=== PATIENT | male | born 1990 | race Hispanic/Latino ===

== ENCOUNTER 2017-02-28 13:46 | Emergency (ER) | payer SELFPAY ==
--- NOTE | 2017-02-28 15:01 | RAD ---
FRONTAL VIEW CHEST: Indication: Chest pain. FINDINGS: There is hypo-inflation of the lungs. No consolidation, effusion, or discrete pneumothorax. Cardiac s ilhouette is accentuated. IMPRESSION: No focal consolidation. Hypoinflated lungs. POS: [facility]
[2017-02-28] MEDS ORDERED: Ketorolac Tromethamine 30 MG/ML VIAL ONE (16:05)
[2017-02-28] MEDS ORDERED: Lorazepam 1 MG TAB ONE (16:39)
[2017-02-28 17:01] LABS: #Basophils 0.1 thou/uL (0.0-0.2); #Eosinphils 0.1 thou/uL (0.0-0.7); #Lymphocytes 2.7 thou/uL (1.20-3.40); #Monocytes 0.4 thou/uL (0.11-0.59); #Neutrophils 5.2 thou/uL (1.40-6.50); %Basophils 0.8 % (0.0-1.0); %Eosinophils 0.8 % (0.0-10.0); %Monocytes 4.3 % (0.0-10.0); %Neutrophils 62.1 % (42.0-75.0); Hemoglobin 16.4 g/dL (14.0-18.0); Mean Corpuscular HGB CONC 35.4 g/dL (32.0-36.0); Mean Corpuscular Hemoglobin 30.7 pg (27.0-31.0); Mean Corpuscular Volume 86.9 fl (80.0-94.0); Mean Platelet Volume 7.6 fL (7.4-10.4); Platelet Count 177 thou/uL (130-400); RBC Distribution Width 11.6 % (11.5-14.5); Red Blood Cell (RBC) Count 5.32 mill/uL (4.70-6.10); White Blood Cell (WBC) Count 8.4 thou/uL (4.8-10.8)
[2017-02-28 17:24] LABS: Anion Gap 13 mmol/L (10-20); BUN (Urea Nitrogen) 12 mg/dL (8.9-20.6); CK (CPK) 102 U/L (30-200); Calc. Creatinine Clearance 0 mL/min (70-130); Calcium 9.9 mg/dL (7.8-10.44); Carbon Dioxide 26 mmol/L (22-29); Chloride 104 mmol/L (98-107); Estimated GFR-MDRD Greater than 90; Glucose 86 mg/dL (70-105); Potassium 4.1 mmol/L (3.5-5.1); Sodium 139 mmol/L (136-145)
[2017-02-28 17:28] LABS: CKMB 0.7 ng/mL (0-6.6); Troponin I Less than 0.010 ng/mL (< 0.028)
== END 2017-02-28 18:05 | disposition home or self-care (01) ==
LOC: ERS 13:46
DX: R07.89 Other chest pain (principal); J45.909 Unspecified asthma, uncomplicated
CPT/HCPCS: 71045; 80048; 82550; 82553; 84484; 85025; 85379; 93005; 96372; J1885

== ENCOUNTER 2020-03-07 19:37 | Emergency (ER) | payer SELFPAY ==
[2020-03-07] MEDS ORDERED: Ibuprofen 200 MG TAB ONE (20:13)
--- NOTE | 2020-03-07 20:55 | RAD ---
Portable frontal chest radiograph 03/07/2020 COMPARISON: 02/28/2017 HISTORY: Chest pain with congestion FINDINGS: The lungs appear clear. Heart and mediastinal contours are grossly unremarkable. IMPRESSION: No acute findings.
[2020-03-08 02:50] LABS: SARS-CoV-2 MS2 Positive; SARS-CoV-2 N Gene Positive; SARS-CoV-2 S Gene Positive; SARS-CoV-2 by NAA DETECTED (NotDetected); SARS-CoV-2 orf1ab Positive
== END 2020-03-07 21:20 | disposition home or self-care (01) ==
LOC: ERS 19:37
DX: U07.1 COVID-19 (principal); J45.909 Unspecified asthma, uncomplicated
CPT/HCPCS: 71045; 87635; U0003